=== PATIENT | male | born 1930 | race Caucasian/White ===

== ENCOUNTER 2020-12-20 13:48 | Observation (INO) ==
[2020-12-20] MEDS ORDERED: Furosemide 40 MG/4 ML VIAL IVP ONE (14:04)
[2020-12-20 14:22] LABS: Basophils % 0.4 %; Mean Corpuscular HGB Conc 28.6 g/dL (31.6-35.5)
[2020-12-20 14:23] LABS: Eosinophils # 0.2 K/mcL (0.0-0.6); Eosinophils % 2.1 %; Hematocrit 39.5 % (37.5-50.1); Hemoglobin 11.3 g/dL (12.9-16.9); Immature Granulocytes % 0.3 % (0-4); Lymphocytes # 1.3 K/mcL (0.6-4.6); Lymphocytes % 17.4 %; Mean Corpuscular Hemoglobin 22.6 pg (28.0-33.3); Mean Corpuscular Volume 79.2 fL (83.0-100.0); Monocytes # 1.3 K/mcL (0.0-1.3); Monocytes % 17.1 %; Platelet Count 246 K/mcL (140-400); Red Blood Count 4.99 M/mcL (4.19-5.50); Red Cell Distribution Width 20.4 % (11.5-14.5); Segmented Neutrophils % 62.7 %; White Blood Count 7.6 K/mcL (4.3-11.1)
[2020-12-20 14:40] LABS: INR 3.9; Prothrombin Time 42.9 Seconds (9.4-12.1)
[2020-12-20 14:42] LABS: Neutrophils # 4.8 K/mcL (1.6-8.9)
[2020-12-20 14:43] LABS: Activated Partial Thrombo Time 58.3 Seconds (26.0-36.0)
[2020-12-20 14:45] LABS: BUN/Creatinine Ratio 18 (6-26); Blood Urea Nitrogen 21 mg/dL (8-23); Calcium 9.6 mg/dL (8.6-10.3); Carbon Dioxide 28 mEq/L (23-29); Chloride 101 mEq/L (98-107); Glucose 100 mg/dL (70-105); Osmolality,Calculated 287 (280-300); Potassium 3.9 mEq/L (3.5-5.1); Sodium 137 mEq/L (136-145); Troponin I 0.03 ng/mL (< 0.04); eGFR For African Americans > 60 (> 60); eGFR For Non-African Americans 59 (> 60)
[2020-12-20] MEDS ORDERED: cephALEXin 500 MG CAPSULE PO ONE (14:54)
[2020-12-20 15:09] LABS: Anisocytosis 2+ (Not Present); Stomatocytes 1+ (Not Present); Target Cells 1+ (Not Present)
[2020-12-20 15:10] LABS: Platelet Estimate Normal (Normal)
[2020-12-20] MEDS ORDERED: Melatonin 3 MG TABLET PO PRN (17:14)
[2020-12-20] MEDS ORDERED: Ondansetron ODT 4 MG TAB.RAPDIS SL PRN (17:14)
[2020-12-20] MEDS ORDERED: MOM Conc 10 ML UD.LIQ PO PRN (17:14)
[2020-12-20] MEDS ORDERED: Naloxone 0.4 MG/ML INJ IVP PRN (17:14)
[2020-12-20] MEDS ORDERED: Mag Hydrox/Al Hydrox/Simeth 30 ML UDC PO PRN (17:14)
[2020-12-20] MEDS ORDERED: Perflutren Lipid Microsphere 1.3 ML in 0.9 % Sodium Chloride 8.7 ML IVP PRN (17:17)
[2020-12-20] MEDS ORDERED: Warfarin perPT PO PRN (18:00)
[2020-12-21 02:15] LABS: Hematocrit 36.3 % (37.5-50.1); Hemoglobin 10.6 g/dL (12.9-16.9); Mean Corpuscular HGB Conc 29.2 g/dL (31.6-35.5); Mean Corpuscular Hemoglobin 22.8 pg (28.0-33.3); Mean Corpuscular Volume 78.2 fL (83.0-100.0); Platelet Count 213 K/mcL (140-400); Red Blood Count 4.64 M/mcL (4.19-5.50); White Blood Count 6.5 K/mcL (4.3-11.1)
[2020-12-21 02:24] LABS: INR 3.7; Prothrombin Time 41.5 Seconds (9.4-12.1)
[2020-12-21 02:36] LABS: Alanine Aminotransferase 8 Units/L (7-52); Albumin 3.8 g/dL (3.5-5.7); Albumin/Globulin Ratio 1.3 (1.1-2.2); Alkaline Phosphatase 49 Units/L (34-104); Aspartate Amino Transferase 24 Units/L (13-39); BUN/Creatinine Ratio 19 (6-26); Bilirubin,Total 1.1 mg/dL (0.3-1.0); Blood Urea Nitrogen 22 mg/dL (8-23); Calcium 9.2 mg/dL (8.6-10.3); Carbon Dioxide 29 mEq/L (23-29); Chloride 101 mEq/L (98-107); Globulin 2.9 g/dL (2.4-3.5); Glucose 96 mg/dL (70-105); Osmolality,Calculated 291 (280-300); Potassium 3.9 mEq/L (3.5-5.1); Sodium 139 mEq/L (136-145); Total Protein 6.7 g/dL (6.4-8.9); eGFR For African Americans > 60 (> 60); eGFR For Non-African Americans > 60 (> 60)
[2020-12-21] MEDS: Metoprolol XL (24 HR) Succ 25 MG TAB.ER.24H PO SCH (07:43)
[2020-12-21] MEDS: Lactobacillus 1 EACH CAP.SPRINK PO SCH (07:43)
[2020-12-21] MEDS: Fenofibrate 54 MG TABLET PO SCH (07:43)
[2020-12-21] MEDS: Aspirin Enteric Coated 81 MG Tablet PO SCH (07:43)
[2020-12-21] MEDS: Furosemide 40 MG/4 ML VIAL IVP SCH (07:44)
[2020-12-21] MEDS: cefTRIAXone 1,000 MG in Water for inj. (sterile) 10 ML IVP SCH (07:44)
[2020-12-21] MEDS: polyethylene glycoL 3350 17 GM POWD.PACK PO SCH (07:44)
[2020-12-21] MEDS ORDERED: Ipratropium/Albuterol Neb 3 ML IH PRN (10:47)
[2020-12-21] MEDS: Temazepam 15 MG CAPSULE PO SCH (21:19)
[2020-12-21] MEDS: Melatonin 3 MG TABLET PO PRN (21:19)
[2020-12-22 06:49] LABS: INR 3.3
[2020-12-22] MEDS: polyethylene glycoL 3350 17 GM POWD.PACK PO SCH (08:05)
[2020-12-22] MEDS: Aspirin Enteric Coated 81 MG Tablet PO SCH (08:05)
[2020-12-22] MEDS: Furosemide 40 MG/4 ML VIAL IVP SCH (08:06)
[2020-12-22] MEDS: Fenofibrate 54 MG TABLET PO SCH (08:06)
[2020-12-22] MEDS: Lactobacillus 1 EACH CAP.SPRINK PO SCH (08:06)
[2020-12-22] MEDS: Metoprolol XL (24 HR) Succ 25 MG TAB.ER.24H PO SCH (08:06)
[2020-12-22] MEDS: cefTRIAXone 1,000 MG in Water for inj. (sterile) 10 ML IVP SCH (08:06)
[2020-12-22] MEDS: Furosemide 20 MG TABLET PO SCH (17:14)
[2020-12-22] MEDS ORDERED: *HR* Warfarin 1 MG TABLET PO ONE (18:00)
[2020-12-22] MEDS: Temazepam 15 MG CAPSULE PO SCH (20:15)
[2020-12-23] MEDS: Melatonin 3 MG TABLET PO PRN (01:46)
[2020-12-23] MEDS: Lactobacillus 1 EACH CAP.SPRINK PO SCH (07:26)
[2020-12-23] MEDS: Aspirin Enteric Coated 81 MG Tablet PO SCH (07:26)
[2020-12-23] MEDS: Metoprolol XL (24 HR) Succ 25 MG TAB.ER.24H PO SCH (07:26)
[2020-12-23] MEDS: Furosemide 20 MG TABLET PO SCH (07:26)
[2020-12-23] MEDS: Fenofibrate 54 MG TABLET PO SCH (07:27)
[2020-12-23] MEDS: polyethylene glycoL 3350 17 GM POWD.PACK PO SCH (07:27)
[2020-12-23] MEDS: cefTRIAXone 1,000 MG in Water for inj. (sterile) 10 ML IVP SCH (07:29)
[2020-12-23 07:30] LABS: INR 2.9; Prothrombin Time 32.6 Seconds (9.4-12.1)
[2020-12-23 11:00] VITALS: BP 150/82
[2020-12-23] MEDS ORDERED: *HR* Warfarin 1 MG TABLET PO ONE (18:00)
== END 2020-12-23 12:35 | disposition home or self-care (01) ==
LOC: EMEROOARM 13:48 → 3ANU 13:48 → SUATTDRO 17:40 → 3ANU 18:17
PROVIDERS: ADMIT Internal Medicine; ATTEND Internal Medicine

== ENCOUNTER 2021-11-01 19:27 | Observation (INO) ==
[2021-11-01] MEDS ORDERED: Ipratropium/Albuterol Neb 3 ML IH ONE (20:40)
[2021-11-01 20:50] LABS: Basophils % 0.6 %; Eosinophils # 0.4 K/mcL (0.0-0.6); Eosinophils % 5.6 %; Hematocrit 36.7 % (37.5-50.1); Hemoglobin 11.5 g/dL (12.9-16.9); Immature Granulocytes % 0.3 % (0-4); Lymphocytes % 15.2 %; Mean Corpuscular HGB Conc 31.3 g/dL (31.6-35.5); Mean Corpuscular Hemoglobin 28.7 pg (28.0-33.3); Mean Corpuscular Volume 91.5 fL (83.0-100.0); Mean Platelet Volume 10.9 fL (9.4-12.4); Monocytes # 1.2 K/mcL (0.0-1.3); Monocytes % 17.5 %; Platelet Count 230 K/mcL (140-400); Red Blood Count 4.01 M/mcL (4.19-5.50); Red Cell Distribution Width 17.2 % (11.5-14.5); Segmented Neutrophils % 60.8 %; White Blood Count 6.6 K/mcL (4.3-11.1)
[2021-11-01 21:13] LABS: BUN/Creatinine Ratio 21 (6-26); Blood Urea Nitrogen 23 mg/dL (8-23); Calcium 8.7 mg/dL (8.6-10.3); Carbon Dioxide 31 mEq/L (23-29); Chloride 100 mEq/L (98-107); Glucose 137 mg/dL (70-105); Osmolality,Calculated 290 (280-300); Potassium 4.3 mEq/L (3.5-5.1); Sodium 137 mEq/L (136-145); eGFR For African Americans > 60 (> 60); eGFR For Non-African Americans > 60 (> 60)
[2021-11-01 21:14] LABS: Troponin I < 0.03 ng/mL (< 0.04)
[2021-11-01] MEDS ORDERED: Furosemide 40 MG/4 ML VIAL IVP ONE (21:41)
[2021-11-01] MEDS ORDERED: Isovue-370 500 ML BOTTLE IVP ONE (21:41)
[2021-11-01 23:01] LABS: Prothrombin Time 32.9 Seconds (9.4-12.1)
[2021-11-02] MEDS ORDERED: Acetaminophen 325 MG TABLET PO PRN (02:53)
[2021-11-02] MEDS ORDERED: Ondansetron 4 MG/2 ML VIAL IVP PRN (02:53)
[2021-11-02] MEDS ORDERED: Naloxone 0.4 MG/ML INJ IVP PRN (02:53)
[2021-11-02] MEDS ORDERED: Isovue-370 500 ML BOTTLE IVP ONE ×2 (03:54)
[2021-11-02] MEDS ORDERED: Desitin (Zinc Oxide) 56 GM TUBE TP PRN (04:15)
[2021-11-02 04:37] LABS: Bilirubin,Urine Negative (Negative); Blood,Urine Negative (Negative); Clarity,Urine Clear (Clear); Color,Urine Light-Yellow (Yellow); Glucose,Urine (UA) Normal (Normal); Ketones,Urine Negative (Negative); Leukocyte Esterase,Urine Negative (Negative); Nitrite,Urine Negative (Negative); PH,Urine 5.5 pH Units (5.0-8.0); Protein,Urine Negative (Neg-Trace); Specific Gravity,Urine > 1.030 (1.010-1.025); Urobilinogen,Urine Normal (Normal)
[2021-11-02 04:40] LABS: Basophils % 0.6 %; Eosinophils # 0.2 K/mcL (0.0-0.6); Eosinophils % 2.6 %; Hematocrit 37.6 % (37.5-50.1); Hemoglobin 11.7 g/dL (12.9-16.9); Immature Granulocytes % 0.3 % (0-4); Lymphocytes # 0.9 K/mcL (0.6-4.6); Lymphocytes % 12.9 %; Mean Corpuscular HGB Conc 31.1 g/dL (31.6-35.5); Mean Corpuscular Hemoglobin 28.3 pg (28.0-33.3); Mean Corpuscular Volume 90.8 fL (83.0-100.0); Mean Platelet Volume 11.3 fL (9.4-12.4); Monocytes % 14.7 %; Neutrophils # 4.8 K/mcL (1.6-8.9); Platelet Count 222 K/mcL (140-400); Red Blood Count 4.14 M/mcL (4.19-5.50); Red Cell Distribution Width 17.2 % (11.5-14.5); Segmented Neutrophils % 68.9 %; White Blood Count 6.9 K/mcL (4.3-11.1)
[2021-11-02 04:58] LABS: Alanine Aminotransferase 7 Units/L (7-52); Albumin 3.4 g/dL (3.5-5.7); Albumin/Globulin Ratio 1.1 (1.1-2.2); Alkaline Phosphatase 54 Units/L (34-104); Aspartate Amino Transferase 24 Units/L (13-39); BUN/Creatinine Ratio 22 (6-26); Bilirubin,Direct 0.4 mg/dL (0.0-0.2); Bilirubin,Indirect 0.8 mg/dL (0.0-1.0); Bilirubin,Total 1.2 mg/dL (0.3-1.0); Blood Urea Nitrogen 22 mg/dL (8-23); Calcium 9.1 mg/dL (8.6-10.3); Carbon Dioxide 31 mEq/L (23-29); Chloride 99 mEq/L (98-107); Globulin 3.2 g/dL (2.4-3.5); Glucose 88 mg/dL (70-105); Magnesium 1.9 mg/dL (1.6-2.6); Osmolality,Calculated 287 (280-300); Potassium 3.4 mEq/L (3.5-5.1); Sodium 137 mEq/L (136-145); Total Protein 6.6 g/dL (6.4-8.9); eGFR For African Americans > 60 (> 60); eGFR For Non-African Americans > 60 (> 60)
[2021-11-02] MEDS ORDERED: Melatonin 3 MG TABLET PO PRN (12:44)
[2021-11-02] MEDS: Furosemide 40 MG/4 ML VIAL IVP SCH (13:09)
[2021-11-02] MEDS: predniSONE 20 MG TABLET PO SCH (13:10)
[2021-11-02] MEDS: Budesonide/Formoterol 160/4.5 1 PUFF INH IH SCH ×2 (15:25→19:40)
[2021-11-02] MEDS: Ipratropium/Albuterol Neb 3 ML IH SCH ×3 (15:25→19:40)
[2021-11-02] MEDS ORDERED: Warfarin perPT PO PRN (18:00)
[2021-11-02] MEDS ORDERED: Saline Nasal Spray 44 ML BOTTLE NS PRN (20:44)
[2021-11-02] MEDS ORDERED: Temazepam 15 MG CAPSULE PO SCH (21:00)
[2021-11-02] MEDS ORDERED: Aspirin Enteric Coated 81 MG Tablet PO SCH (21:00)
[2021-11-03] MEDS ORDERED: *HR* LORazepam 2 MG/ML VIAL IVP ONE (02:52)
[2021-11-03] MEDS: Ipratropium/Albuterol Neb 3 ML IH SCH ×2 (03:38→08:41)
[2021-11-03 07:12] LABS: Hematocrit 34.6 % (37.5-50.1); Hemoglobin 10.7 g/dL (12.9-16.9); Mean Corpuscular HGB Conc 30.9 g/dL (31.6-35.5); Mean Corpuscular Hemoglobin 27.9 pg (28.0-33.3); Mean Corpuscular Volume 90.3 fL (83.0-100.0); Mean Platelet Volume 11.3 fL (9.4-12.4); Platelet Count 220 K/mcL (140-400); Red Blood Count 3.83 M/mcL (4.19-5.50); Red Cell Distribution Width 17.2 % (11.5-14.5); White Blood Count 6.9 K/mcL (4.3-11.1)
[2021-11-03 07:20] LABS: INR 2.4; Prothrombin Time 26.1 Seconds (9.4-12.1)
[2021-11-03 07:32] LABS: BUN/Creatinine Ratio 23 (6-26); Blood Urea Nitrogen 25 mg/dL (8-23); Calcium 9.3 mg/dL (8.6-10.3); Carbon Dioxide 29 mEq/L (23-29); Chloride 100 mEq/L (98-107); Glucose 97 mg/dL (70-105); Osmolality,Calculated 290 (280-300); Potassium 3.9 mEq/L (3.5-5.1); Sodium 138 mEq/L (136-145); eGFR For African Americans > 60 (> 60); eGFR For Non-African Americans > 60 (> 60)
[2021-11-03 07:34] LABS: Lymphocytes # 0.7 K/mcL (0.6-4.6); Monocytes # 1.1 K/mcL (0.0-1.3); Neutrophils # 5.1 K/mcL (1.6-8.9); Platelet Estimate Normal (Normal)
[2021-11-03] MEDS: predniSONE 20 MG TABLET PO SCH (07:39)
[2021-11-03] MEDS: Budesonide/Formoterol 160/4.5 1 PUFF INH IH SCH (08:41)
[2021-11-03] MEDS ORDERED: polyethylene glycoL 3350 17 GM POWD.PACK PO SCH (09:00)
[2021-11-03] MEDS ORDERED: Metoprolol XL (24 HR) Succ 25 MG TAB.ER.24H PO SCH (09:00)
[2021-11-03] MEDS: Furosemide 40 MG/4 ML VIAL IVP SCH (09:44)
[2021-11-03 11:19] VITALS: BP 145/67; PULSE 79; TEMP 98.4; O2SAT 93
[2021-11-03] MEDS ORDERED: *HR* Warfarin 1 MG TABLET PO ONE (18:00)
== END 2021-11-03 15:13 | disposition home or self-care (01) ==
LOC: 2NENU 19:27 → EMEROOARM 19:27 → SUATTDRO 11-02 01:48 → 2NENU 11-02 03:06
PROVIDERS: ADMIT Internal Medicine; ATTEND Internal Medicine

== ENCOUNTER 2021-11-28 10:03 | Inpatient (IN) ==
[2021-11-28] MEDS ORDERED: Ringers Solution, Lactated 1,000 ML IVC SCH (10:45)
[2021-11-28] MEDS ORDERED: Famotidine 20 MG/2 ML VIAL IVP ONE (10:49)
[2021-11-28] MEDS ORDERED: Ipratropium/Albuterol Neb 3 ML IH ONE (11:14)
[2021-11-28] MEDS ORDERED: Ondansetron 4 MG/2 ML VIAL IVP PRN ×2 (11:15→19:42)
[2021-11-28] MEDS ORDERED: *HR* OxyCODONE Immed Rel 5 MG TABLET PO PRN (11:15)
[2021-11-28] MEDS ORDERED: Albuterol 2.5 MG/3 ML NEBULIZER IH PRN (11:15)
[2021-11-28] MEDS ORDERED: *HR* Rocuronium Bromide 50 MG/5 ML VIAL ONE ×3 (12:06→15:21)
[2021-11-28] MEDS ORDERED: *HR* FentaNYL (PF) 100 MCG/2 ML VIAL ONE ×2 (12:06→17:08)
[2021-11-28] MEDS ORDERED: Sugammadex Sodium 200 MG/2 ML VIAL IV ONE (12:06)
[2021-11-28] MEDS ORDERED: Ondansetron 4 MG/2 ML VIAL ONE (12:06)
[2021-11-28] MEDS ORDERED: *HR* Succinylcholine 200 MG/10 ML VIAL IVP ONE (12:06)
[2021-11-28] MEDS ORDERED: *HR* Propofol 200 MG/20 ML VIAL IVP ONE (12:07)
[2021-11-28] MEDS ORDERED: Lidocaine HCL 4 ML Topical Solution (Laryng-O-Jet Kit Sterile Pak) TP ONE (12:10)
[2021-11-28] MEDS ORDERED: Lidocaine/EPI 1:100k 1% 50 ML VIAL ONE (12:18)
[2021-11-28] MEDS ORDERED: Oxymetazoline Nasal SPRAY BOTTLE 15ML NS ONE (12:18)
[2021-11-28] MEDS ORDERED: CeFAZolin Syr 2,000MG/20 ML 2,000 MG/20 ML SYRINGE IVPB ONE (16:45)
[2021-11-28] MEDS ORDERED: CeFAZolin 2,000 MG/120 ML BAG IVPB ONE (17:00)
[2021-11-28] MEDS ORDERED: *HR* FentaNYL (PF) 100 MCG/2 ML VIAL IVP PRN (17:08)
[2021-11-28] MEDS ORDERED: Naloxone 0.4 MG/ML INJ IVP PRN (19:42)
[2021-11-28] MEDS ORDERED: Acetaminophen 325 MG TABLET PO PRN (19:42)
[2021-11-28] MEDS ORDERED: Dextrose 4 GM Chewable Tablets PO PRN ×2 (19:45)
[2021-11-28] MEDS ORDERED: *HR* Dextrose 50 % in Water (Syg) 50 ML SYRINGE IVP PRN (19:45)
[2021-11-28] MEDS ORDERED: D5% in Water 1,000 ML IVC PRN (19:45)
[2021-11-28 22:13] LABS: INR 1.6; Prothrombin Time 17.5 Seconds (9.4-12.1)
[2021-11-28 22:20] LABS: BUN/Creatinine Ratio 23 (6-26); Blood Urea Nitrogen 25 mg/dL (8-23); Calcium 8.7 mg/dL (8.6-10.3); Carbon Dioxide 27 mEq/L (23-29); Chloride 103 mEq/L (98-107); Glucose 106 mg/dL (70-105); Osmolality,Calculated 289 (280-300); Potassium 4.1 mEq/L (3.5-5.1); Sodium 137 mEq/L (136-145); eGFR For African Americans > 60 (> 60); eGFR For Non-African Americans > 60 (> 60)
[2021-11-28] MEDS: Ipratropium/Albuterol Neb 3 ML IH SCH (23:39)
[2021-11-28] MEDS: Budesonide/Formoterol 160/4.5 1 PUFF INH IH SCH (23:39)
[2021-11-29] MEDS ORDERED: Albuterol 2.5 MG/3 ML NEBULIZER IH PRN
[2021-11-29] MEDS: *HR* HYDROmorphone (PF) 1 MG/ML SYRINGE IVP PRN ×2 (00:31→04:14)
[2021-11-29] MEDS: Ipratropium/Albuterol Neb 3 ML IH SCH ×4 (04:07→20:39)
[2021-11-29 06:19] LABS: Hematocrit 41.4 % (37.5-50.1); Hemoglobin 12.4 g/dL (12.9-16.9); Mean Corpuscular Hemoglobin 28.1 pg (28.0-33.3); Mean Corpuscular Volume 93.7 fL (83.0-100.0); Monocytes # 2.3 K/mcL (0.0-1.3); Platelet Count 351 K/mcL (140-400); Red Blood Count 4.42 M/mcL (4.19-5.50); Red Cell Distribution Width 17.3 % (11.5-14.5); White Blood Count 12.5 K/mcL (4.3-11.1)
[2021-11-29 06:27] LABS: INR 1.5; Prothrombin Time 16.4 Seconds (9.4-12.1)
[2021-11-29 06:38] LABS: Albumin 3.6 g/dL (3.5-5.7); Albumin/Globulin Ratio 1.1 (1.1-2.2); Bilirubin,Direct 0.7 mg/dL (0.0-0.2); Bilirubin,Indirect 0.7 mg/dL (0.0-1.0); Bilirubin,Total 1.4 mg/dL (0.3-1.0); Globulin 3.3 g/dL (2.4-3.5); Total Protein 6.9 g/dL (6.4-8.9)
[2021-11-29 06:40] LABS: BUN/Creatinine Ratio 23 (6-26); Blood Urea Nitrogen 29 mg/dL (8-23); Calcium 8.9 mg/dL (8.6-10.3); Carbon Dioxide 27 mEq/L (23-29); Chloride 102 mEq/L (98-107); Glucose 101 mg/dL (70-105); Osmolality,Calculated 292 (280-300); Potassium 4.5 mEq/L (3.5-5.1); Sodium 138 mEq/L (136-145); eGFR For African Americans > 60 (> 60); eGFR For Non-African Americans 54 (> 60)
[2021-11-29 06:47] LABS: Neutrophils # 8.3 K/mcL (1.6-8.9)
[2021-11-29 06:48] LABS: Platelet Estimate Normal (Normal)
[2021-11-29 06:53] LABS: Thyroid Stimulating Hormone 10.222 mcIU/mL (0.340-5.600)
[2021-11-29 07:08] LABS: Estimated Average Glucose 108 mg/dl; Hemoglobin A1C 5.4 %
[2021-11-29] MEDS ORDERED: Furosemide 40 MG TABLET PO SCH (09:00)
[2021-11-29] MEDS: Budesonide/Formoterol 160/4.5 1 PUFF INH IH SCH ×2 (10:11→20:39)
[2021-11-29] MEDS: Insulin LISPRO 300 UNITS/3 ML VIAL SUBQ SCH ×3 (10:45→19:40)
[2021-11-29] MEDS: Metoprolol XL (24 HR) Succ 25 MG TAB.ER.24H PO SCH (10:46)
[2021-11-29 11:03] LABS: Thyroid Stimulating Hormone 11.302 mcIU/mL (0.340-5.600)
[2021-11-29] MEDS: Furosemide 40 MG/4 ML VIAL IVP SCH ×2 (11:18→20:49)
[2021-11-29] MEDS ORDERED: *HR* Heparin 5,000 UNIT/ML VIAL IVP ONE (14:28)
[2021-11-29] MEDS ORDERED: *HR* Heparin 5,000 UNIT/ML VIAL IVP PRN ×2 (14:28)
[2021-11-29] MEDS: Heparin 25,000UNIT/250ML 1/2NS 25,000 UNIT/250 ML IV.SOLN IVC SCH (15:19)
[2021-11-29 15:53] LABS: ABG Base Excess -1 mEq/L (-2 to 3); ABG HCO3 29 mEq/L (21-27); ABG Oxygen Saturation 93 % (95-98); ABG PCO2 69 mmHg (35-45); ABG PH 7.22 pH Units (7.32-7.45); ABG PO2 83 mmHg (85-104); ABG TCO2 31 mEq/L (20-26)
[2021-11-29] MEDS ORDERED: Furosemide 20 MG TABLET PO SCH (17:00)
[2021-11-29] MEDS ORDERED: Doxycycline 100 MG in 0.9 % Sodium Chloride Mini Bag 100 ML IVPB SCH (18:00)
[2021-11-29] MEDS: Doxycycline 100 MG in 0.9 % Sodium Chloride Mini Bag 100 ML IVPB SCH (20:49)
[2021-11-29] MEDS: Aspirin Enteric Coated 81 MG Tablet PO SCH (21:00)
[2021-11-30] MEDS: MethylPREDNISolone 40 MG/ML VIAL IVP SCH ×3 (00:33→22:29)
[2021-11-30] MEDS: Ipratropium/Albuterol Neb 3 ML IH SCH ×4 (03:49→19:50)
[2021-11-30 04:27] LABS: VBG HCO3 27 mEq/L (21-27); VBG PCO2 54 mmHg (41-51); VBG PH 7.31 pH Units (7.32-7.42); VBG PO2 92 mmHg (25-50)
[2021-11-30 04:44] LABS: INR 2.1; Prothrombin Time 23.3 Seconds (9.4-12.1)
[2021-11-30 04:46] LABS: Calcium 8.7 mg/dL (8.6-10.3); Potassium 4.9 mEq/L (3.5-5.1)
[2021-11-30 05:27] LABS: Hematocrit 37.1 % (37.5-50.1); Hemoglobin 11.4 g/dL (12.9-16.9); Mean Corpuscular HGB Conc 30.7 g/dL (31.6-35.5); Mean Corpuscular Hemoglobin 28.2 pg (28.0-33.3); Mean Corpuscular Volume 91.8 fL (83.0-100.0); Mean Platelet Volume 10.9 fL (9.4-12.4); Platelet Count 264 K/mcL (140-400); Red Blood Count 4.04 M/mcL (4.19-5.50); Red Cell Distribution Width 16.9 % (11.5-14.5); White Blood Count 8.3 K/mcL (4.3-11.1)
[2021-11-30] MEDS: Budesonide/Formoterol 160/4.5 1 PUFF INH IH SCH ×2 (07:25→19:50)
[2021-11-30] MEDS: Metoprolol XL (24 HR) Succ 25 MG TAB.ER.24H PO SCH (07:28)
[2021-11-30] MEDS: Insulin LISPRO 300 UNITS/3 ML VIAL SUBQ SCH ×2 (07:29→11:17)
[2021-11-30] MEDS: Furosemide 40 MG/4 ML VIAL IVP SCH (08:21)
[2021-11-30] MEDS ORDERED: Saline Nasal Spray 44 ML BOTTLE NS PRN (12:40)
[2021-11-30] MEDS: Heparin 25,000UNIT/250ML 1/2NS 25,000 UNIT/250 ML IV.SOLN IVC SCH (13:50)
[2021-12-01] MEDS: Ipratropium/Albuterol Neb 3 ML IH SCH ×4 (04:06→20:37)
[2021-12-01] MEDS: Heparin 25,000UNIT/250ML 1/2NS 25,000 UNIT/250 ML IV.SOLN IVC SCH ×2 (05:40→23:25)
[2021-12-01] MEDS: Aspirin Enteric Coated 81 MG Tablet PO SCH ×2 (06:03→21:02)
[2021-12-01] MEDS: MethylPREDNISolone 40 MG/ML VIAL IVP SCH ×4 (06:04→17:07)
[2021-12-01 06:06] LABS: Mean Corpuscular HGB Conc 31.4 g/dL (31.6-35.5); Mean Corpuscular Hemoglobin 27.9 pg (28.0-33.3); Mean Corpuscular Volume 88.8 fL (83.0-100.0); Mean Platelet Volume 10.6 fL (9.4-12.4); Platelet Count 246 K/mcL (140-400); Red Blood Count 3.94 M/mcL (4.19-5.50); Red Cell Distribution Width 16.9 % (11.5-14.5); White Blood Count 7.8 K/mcL (4.3-11.1)
[2021-12-01 06:27] LABS: Calcium 8.8 mg/dL (8.6-10.3)
[2021-12-01] MEDS: Budesonide/Formoterol 160/4.5 1 PUFF INH IH SCH ×2 (08:02→20:38)
[2021-12-01] MEDS ORDERED: Furosemide 40 MG/4 ML VIAL IVP SCH (09:00)
[2021-12-01] MEDS: Insulin LISPRO 300 UNITS/3 ML VIAL SUBQ SCH ×4 (09:51→16:51)
[2021-12-01] MEDS: Metoprolol XL (24 HR) Succ 25 MG TAB.ER.24H PO SCH (09:53)
[2021-12-01] MEDS: Doxycycline 100 MG in 0.9 % Sodium Chloride Mini Bag 100 ML IVPB SCH ×3 (11:33→21:02)
[2021-12-01] MEDS: Albumin 25% 25gram/100mL 25 GM/100 ML IV.SOLN IVPB SCH ×2 (16:27→21:03)
[2021-12-01] MEDS ORDERED: *HR* LORazepam 2 MG/ML VIAL IVP ONE (22:56)
[2021-12-01 22:57] LABS: Bilirubin,Urine Negative (Negative); Blood,Urine Large (Negative); Clarity,Urine Ex.Turbid (Clear); Color,Urine Light-Orange (Yellow); Glucose,Urine (UA) Normal (Normal); Ketones,Urine Trace mg/dL (Negative); Leukocyte Esterase,Urine Negative (Negative); Nitrite,Urine Negative (Negative); PH,Urine 5.5 pH Units (5.0-8.0); Protein,Urine 100 mg/dL (Neg-Trace); RBC,Urine TNTC per hpf (0-3); Urobilinogen,Urine Normal (Normal)
[2021-12-01 23:05] LABS: Protein/Creatinine Ratio,Urine 1.25 mg/mg (0.00-0.20)
[2021-12-01 23:06] LABS: Sodium, Urine 13.5 mEq/L
[2021-12-02] MEDS: flumazeniL 0.5 MG/5 ML VIAL IVP PRN ×4 (00:45→01:26)
[2021-12-02] MEDS: MethylPREDNISolone 40 MG/ML VIAL IVP SCH ×2 (01:27→07:54)
[2021-12-02] MEDS ORDERED: HydrOXYzine 100 MG/2 ML VIAL IM ONE (02:48)
[2021-12-02] MEDS: Ipratropium/Albuterol Neb 3 ML IH SCH ×4 (04:07→20:09)
[2021-12-02 06:53] LABS: Hematocrit 35.9 % (37.5-50.1); Hemoglobin 11.6 g/dL (12.9-16.9); Mean Corpuscular HGB Conc 32.3 g/dL (31.6-35.5); Mean Corpuscular Hemoglobin 28.4 pg (28.0-33.3); Mean Corpuscular Volume 87.8 fL (83.0-100.0); Mean Platelet Volume 10.5 fL (9.4-12.4); Platelet Count 256 K/mcL (140-400); Red Blood Count 4.09 M/mcL (4.19-5.50); Red Cell Distribution Width 17.2 % (11.5-14.5); White Blood Count 9.1 K/mcL (4.3-11.1)
[2021-12-02 07:11] LABS: Potassium 5.4 mEq/L (3.5-5.1)
[2021-12-02 07:15] LABS: Uric Acid 11.2 mg/dL (2.3-7.6)
[2021-12-02 07:17] LABS: Acetaminophen < 10 mcg/mL (10-20); Ethanol < 10 mg/dL (Less than 10); Salicylate < 2.5 mg/dL (15.0-30.0)
[2021-12-02 07:26] LABS: Thyroid Stimulating Hormone 5.309 mcIU/mL (0.340-5.600)
[2021-12-02 07:37] LABS: Folate 11.2 ng/mL (3.0-16.0)
[2021-12-02 07:41] LABS: ABG Base Excess 1 mEq/L (-2 to 3); ABG HCO3 25 mEq/L (21-27); ABG Oxygen Saturation 95 % (95-98); ABG PCO2 37 mmHg (35-45); ABG PH 7.44 pH Units (7.32-7.45); ABG PO2 72 mmHg (85-104); ABG TCO2 26 mEq/L (20-26)
[2021-12-02] MEDS: *HR* Metoprolol 5 MG/5 ML VIAL IVP PRN (07:54)
[2021-12-02] MEDS ORDERED: Insulin Human Regular 10 UNIT in 0.9 % Sodium Chloride 10 ML IV ONE (08:28)
[2021-12-02] MEDS ORDERED: *HR* Dextrose 50 % in Water (Syg) 50 ML SYRINGE IVP ONE (08:28)
[2021-12-02] MEDS ORDERED: Calcium Gluconate 1gm/50mL 1 GM/50 ML BAG IVPB ONE (08:29)
[2021-12-02] MEDS: Insulin LISPRO 300 UNITS/3 ML VIAL SUBQ SCH ×3 (09:20→19:25)
[2021-12-02] MEDS: Budesonide/Formoterol 160/4.5 1 PUFF INH IH SCH ×2 (10:21→20:09)
[2021-12-02] MEDS: Haloperidol Lactate 5 MG/ML VIAL IVP PRN ×3 (10:42→20:20)
[2021-12-02 10:54] LABS: Amphetamine Screen,Urine Negative ng/mL (Cutoff=1000); Barbiturate Screen,Urine Negative ng/mL (Cutoff=200); Benzodiazepines Screen,Urine Negative ng/mL (Cutoff=200); Cannabinoid Screen,Urine Negative ng/mL (Cutoff = 50); Cocaine Screen,Urine Negative ng/mL (Cutoff= 300); Opiate Screen,Urine Negative ng/mL (Cutoff=300); Phencyclidine Screen,Urine Negative ng/mL (Cutoff=25)
[2021-12-02] MEDS: Metoprolol XL (24 HR) Succ 25 MG TAB.ER.24H PO SCH (12:28)
[2021-12-02] MEDS: Doxycycline 100 MG in 0.9 % Sodium Chloride Mini Bag 100 ML IVPB SCH ×2 (12:40→20:21)
[2021-12-02] MEDS: Albumin 25% 25gram/100mL 25 GM/100 ML IV.SOLN IVPB SCH ×2 (12:43→15:51)
[2021-12-02 15:27] LABS: RBC,Peritoneal Fluid 48000 RBC/mcL
[2021-12-02 15:33] LABS: Appearance of Peritoneal Fl CLOUDY (Clear)
[2021-12-02 16:38] LABS: Basophils,Peritoneal Fluid 0 %; Eosinophils,Peritoneal Fluid 0 %
[2021-12-02] MEDS ORDERED: MethylPREDNISolone 40 MG/ML VIAL IVP SCH (18:00)
[2021-12-02] MEDS: Aspirin Enteric Coated 81 MG Tablet PO SCH (19:25)
[2021-12-02] MEDS: Melatonin 3 MG TABLET PO SCH (19:25)
[2021-12-02] MEDS: Heparin 25,000UNIT/250ML 1/2NS 25,000 UNIT/250 ML IV.SOLN IVC SCH (20:20)
[2021-12-03] MEDS: Albumin 25% 25gram/100mL 25 GM/100 ML IV.SOLN IVPB SCH ×4 (00:22→23:23)
[2021-12-03] MEDS: MethylPREDNISolone 40 MG/ML VIAL IVP SCH ×3 (00:22→23:23)
[2021-12-03] MEDS: Haloperidol Lactate 5 MG/ML VIAL IVP PRN ×2 (00:22→06:30)
[2021-12-03 01:59] LABS: Hematocrit 36.8 % (37.5-50.1); Hemoglobin 11.7 g/dL (12.9-16.9); Mean Corpuscular HGB Conc 31.8 g/dL (31.6-35.5); Mean Corpuscular Hemoglobin 27.8 pg (28.0-33.3); Mean Corpuscular Volume 87.4 fL (83.0-100.0); Mean Platelet Volume 10.8 fL (9.4-12.4); Platelet Count 237 K/mcL (140-400); Red Blood Count 4.21 M/mcL (4.19-5.50); Red Cell Distribution Width 17.2 % (11.5-14.5); White Blood Count 9.9 K/mcL (4.3-11.1)
[2021-12-03 02:22] LABS: Albumin 3.7 g/dL (3.5-5.7); Albumin/Globulin Ratio 1.3 (1.1-2.2); Bilirubin,Total 1.7 mg/dL (0.3-1.0); Calcium 9.1 mg/dL (8.6-10.3); Globulin 2.9 g/dL (2.4-3.5); Potassium 5.5 mEq/L (3.5-5.1); Total Protein 6.6 g/dL (6.4-8.9)
[2021-12-03] MEDS: Ipratropium/Albuterol Neb 3 ML IH SCH ×4 (03:45→19:53)
[2021-12-03] MEDS: Insulin LISPRO 300 UNITS/3 ML VIAL SUBQ SCH ×3 (07:24→16:01)
[2021-12-03] MEDS: Metoprolol XL (24 HR) Succ 25 MG TAB.ER.24H PO SCH (07:24)
[2021-12-03] MEDS: Budesonide/Formoterol 160/4.5 1 PUFF INH IH SCH ×2 (07:38→19:53)
[2021-12-03] MEDS: Doxycycline 100 MG in 0.9 % Sodium Chloride Mini Bag 100 ML IVPB SCH ×2 (07:55→20:00)
[2021-12-03] MEDS ORDERED: Calcium Gluconate 1gm/50mL 1 GM/50 ML BAG IVPB ONE (08:05)
[2021-12-03] MEDS ORDERED: Insulin Human Regular 10 UNIT in 0.9 % Sodium Chloride 10 ML IV ONE (08:06)
[2021-12-03] MEDS ORDERED: *HR* Dextrose 50 % in Water (Syg) 50 ML SYRINGE IVP ONE (08:06)
[2021-12-03] MEDS ORDERED: Haloperidol Lactate 5 MG/ML VIAL IVP PRN (09:30)
[2021-12-03] MEDS: Heparin 25,000UNIT/250ML 1/2NS 25,000 UNIT/250 ML IV.SOLN IVC SCH (09:51)
[2021-12-03] MEDS: Melatonin 3 MG TABLET PO SCH (19:18)
[2021-12-03] MEDS: Aspirin Enteric Coated 81 MG Tablet PO SCH (19:18)
[2021-12-03] MEDS ORDERED: Acetaminophen IV 1,000 MG/100 ML BAG IVPB ONE (20:45)
[2021-12-04] MEDS: Morphine Sulfate 2 MG/ML SYRINGE IVP PRN ×4 (01:18→11:32)
[2021-12-04] MEDS: Heparin 25,000UNIT/250ML 1/2NS 25,000 UNIT/250 ML IV.SOLN IVC SCH (02:25)
[2021-12-04] MEDS ORDERED: Acetaminophen IV 1,000 MG/100 ML BAG IVPB ONE (03:18)
[2021-12-04] MEDS: Ipratropium/Albuterol Neb 3 ML IH SCH ×4 (03:48→20:24)
[2021-12-04 06:39] LABS: Hematocrit 32.3 % (37.5-50.1); Hemoglobin 10.6 g/dL (12.9-16.9); Mean Corpuscular HGB Conc 32.8 g/dL (31.6-35.5); Mean Corpuscular Hemoglobin 28.3 pg (28.0-33.3); Mean Corpuscular Volume 86.1 fL (83.0-100.0); Mean Platelet Volume 11.1 fL (9.4-12.4); Platelet Count 227 K/mcL (140-400); Red Blood Count 3.75 M/mcL (4.19-5.50); White Blood Count 11.2 K/mcL (4.3-11.1)
[2021-12-04] MEDS: Insulin LISPRO 300 UNITS/3 ML VIAL SUBQ SCH ×3 (07:31→16:53)
[2021-12-04] MEDS: Metoprolol XL (24 HR) Succ 25 MG TAB.ER.24H PO SCH (07:57)
[2021-12-04] MEDS: Doxycycline 100 MG in 0.9 % Sodium Chloride Mini Bag 100 ML IVPB SCH (07:58)
[2021-12-04 08:18] LABS: Albumin 3.9 g/dL (3.5-5.7); Albumin/Globulin Ratio 1.8 (1.1-2.2); Bilirubin,Total 1.8 mg/dL (0.3-1.0); Globulin 2.2 g/dL (2.4-3.5); Potassium 5.5 mEq/L (3.5-5.1); Total Protein 6.1 g/dL (6.4-8.9)
[2021-12-04] MEDS: Budesonide/Formoterol 160/4.5 1 PUFF INH IH SCH ×2 (10:20→20:25)
[2021-12-04] MEDS: MethylPREDNISolone 40 MG/ML VIAL IVP SCH (11:24)
[2021-12-04] MEDS ORDERED: Furosemide 40 MG/4 ML VIAL IVP ONE (12:40)
[2021-12-04] MEDS: *HR* Metoprolol 5 MG/5 ML VIAL IVP PRN (13:33)
[2021-12-04] MEDS: Haloperidol Lactate 5 MG/ML VIAL IVP SCH ×2 (14:38→17:39)
[2021-12-04] MEDS ORDERED: *HR* FentaNYL PATCH 25 MCG PATCH TD SCH (15:00)
[2021-12-04] MEDS ORDERED: MethylPREDNISolone 40 MG/ML VIAL IVP SCH (18:00)
[2021-12-04] MEDS: Aspirin Enteric Coated 81 MG Tablet PO SCH (19:51)
[2021-12-04] MEDS: Melatonin 3 MG TABLET PO SCH (19:51)
[2021-12-04 23:57] VITALS: BP 111/68; PULSE 85; TEMP 97.5
[2021-12-05] MEDS: Haloperidol Lactate 5 MG/ML VIAL IVP SCH ×3 (00:13→11:55)
[2021-12-05] MEDS: MethylPREDNISolone 40 MG/ML VIAL IVP SCH ×2 (00:14→11:57)
[2021-12-05] MEDS: Ipratropium/Albuterol Neb 3 ML IH SCH ×3 (04:03→15:52)
[2021-12-05 04:07] VITALS: O2SAT 96
[2021-12-05] MEDS: Insulin LISPRO 300 UNITS/3 ML VIAL SUBQ SCH ×2 (10:00→11:58)
[2021-12-05] MEDS: Budesonide/Formoterol 160/4.5 1 PUFF INH IH SCH (10:54)
== END 2021-12-05 16:40 | disposition hospice, inpatient (51) | DRG 11 ==
LOC: 2NNU 10:03 → SAMDAY 10:03 → SUATTDRO 19:42 → 2NENU 12-01 14:17
PROVIDERS: ADMIT Student in an Organized Health Care Education/Training Program; ATTEND Family Medicine
PROC: IRDRAIN (2021-12-05 12:00)

== ENCOUNTER 2021-12-05 14:14 | Inpatient (IN) ==
[2021-12-05] MEDS ORDERED: Bisacodyl 10 MG RECTAL SUPPOSITORY RC PRN (14:37)
[2021-12-05] MEDS ORDERED: *HR* FentaNYL PATCH 12 MCG PATCH TD SCH (14:45)
[2021-12-05] MEDS ORDERED: Haloperidol Lactate 5 MG/ML VIAL IVP PRN ×2 (14:59→15:00)
[2021-12-05] MEDS: Haloperidol Lactate 5 MG/ML VIAL IVP SCH ×2 (16:52→20:08)
[2021-12-05] MEDS ORDERED: *HR* FentaNYL PATCH 25 MCG PATCH TD SCH (17:00)
[2021-12-06] MEDS: Haloperidol Lactate 5 MG/ML VIAL IVP SCH ×3 (03:05→17:12)
[2021-12-07] MEDS: Haloperidol Lactate 5 MG/ML VIAL IVP SCH ×3 (00:21→09:24)
[2021-12-07 05:25] VITALS: PULSE 83; O2SAT 92
[2021-12-07 11:13] VITALS: BP 71/28; TEMP 98.8
== END 2021-12-07 16:33 | disposition expired | DRG 951 ==
LOC: 2NENU 16:24
PROVIDERS: ADMIT Internal Medicine Hospice and Palliative Medicine; ATTEND Internal Medicine Hospice and Palliative Medicine